=== PATIENT | female | born 1990 | race African-American/Black ===

== ENCOUNTER 2016-12-04 23:17 | Emergency (ER) | payer BC, OTHER ==
[2016-12-04 23:36] VITALS: BMI 25.9
--- NOTE | 2016-12-04 23:42 | PDOC ---
History of Present Illness - General History Source: Patient Exam Limitations: No Limitations - History of Present Illness Initial Comments: 12/04/16 23:48 The patient is a 26 year old female with no significant past medical history who presents to the ED with 3 weeks of an allergic reaction. Patient reports she has seasonal allergies and when the weather starts to change she normally develops a slight headache, nasal congestion and itchy throat. States taking claritin intermittently with improvement, but has not been consistent. Patient reports her headache has increased today and been more persistent. States her headache is bitemporal and does not radiate. Denies changes in vision or dizziness. The patient denies fever, chills, cough, SOB, chest pain, and palpitations. The patient denies abdominal pain, nausea, vomiting, and diarrhea. <Teresa Urbina - Last Filed: 12/04/16 23:48> - General History Source: Patient <MarcellMoo swanson - Last Filed: 12/05/16 06:08> - General Chief Complaint: Headache Stated Complaint: HEADACHE Time Seen by Provider: 12/04/16 23:35 Past History <Teresa Urbina - Last Filed: 12/04/16 23:48> - Psycho/Social/Smoking Cessation Hx Suicidal Ideation: No Smoking History: Never smoked Have you smoked in the past 12 months: No Information on smoking cessation initiated: No Hx Alcohol Use: No Drug/Substance Use Hx: No <Moo Rosas - Last Filed: 12/05/16 06:08> - Past Medical History Allergies/Adverse Reactions: Allergies Allergy/AdvReac Type Severity Reaction Status Date / Time No Known Allergies Allergy Verified 12/04/16 23:34 Home Medications: Ambulatory Orders NK [No Known Home Medication] 12/04/16 Review of Systems - Review of Systems Able to Perform ROS?: Yes Comments:: 12/04/16 23:49 CONSTITUTIONAL: Absent: fever, no chills, no fatigue EYES: Absent: visual changes ENT: +nasal congestion, itchy throat Absent: ear pain CARDIOVASCULAR: Absent: chest pain, no palpitations RESPIRATORY: Absent: cough, no SOB GI: Absent: abdominal pain, no nausea, no vomiting, no constipation, no diarrhea GENITOURINARY: Absent: dysuria, no frequency, no hematuria MUSCULOSKELETAL: Absent: back pain, no arthralgia, no myalgia SKIN: Absent: rash NEURO: +headache <Teresa Urbina - Last Filed: 12/04/16 23:48> *Physical Exam - Vital Signs Last Vital Signs Temp Pulse Resp BP Pulse Ox 98.0 F 67 20 133/89 98 12/04/16 23:35 12/04/16 23:35 12/04/16 23:35 12/04/16 23:35 12/04/16 23:35 - Physical Exam Comments: 12/04/16 23:49 GENERAL: Well-appearing, well-nourished. No apparent distress. HEENT: Normocephalic, atraumatic. PERRL, EOM intact. CARDIOVASCULAR: Normal S1, S2. Regular rate and rhythm. PULMONARY: Clear to auscultation bilaterally. ABDOMEN: Soft, non-distended, non-tender. EXTREMITIES: Normal ROM in all four extremities. No gross deformities. SKIN: Warm, dry. No rash NEUROLOGICAL: No focal neurological deficits. <Teresa Urbina - Last Filed: 12/04/16 23:48> - Vital Signs Last Vital Signs Temp Pulse Resp BP Pulse Ox 98.0 F 67 20 133/89 98 12/04/16 23:35 12/04/16 23:35 12/04/16 23:35 12/04/16 23:35 12/04/16 23:35 <Moo Rosas - Last Filed: 12/05/16 06:08> Medical Decision Making - Medical Decision Making 12/05/16 06:07 Dr. Rosas: The scribe's documentation has been prepared under my direction and personally reviewed by me in its entirery. I confirm that the note above accurately reflects all work, treatment, procedures, and medical decision making performed by me. Pt feels better after resting in the department. Will discharge <Moo Rosas - Last Filed: 12/05/16 06:08> *DC/Admit/Observation/Transfer - Attestations Scribe Attestion: 12/04/16 23:49 Documentation prepared by Teresa Urbina, acting as medical insurance biller for Moo Rosas MD <Teresa Urbina - Last Filed: 12/04/16 23:48> - Discharge Dispostion Admit: No <Moo Rosas - Last Filed: 12/05/16 06:08> Diagnosis at time of Disposition: Headache Qualifiers: Headache type: unspecified Headache chronicity pattern: unspecified pattern Intractability: not intractable Qualified Code(s): R51 - Headache - Discharge Dispostion Disposition: HOME Condition at time of disposition: Stable - Referrals Referrals: STAFF,NOT ON [Primary Care Provider] - Alisia Pitts MD [Staff Physician] - - Patient Instructions Printed Discharge Instructions: DI for Headache
[2016-12-04] MEDS ORDERED: MECLIZINE HCL 25 MG TABLET (FP) PO STA (23:43)
[2016-12-04] MEDS ORDERED: ACETAMINOPHEN 325 MG TABLET (FP) PO ONE (23:43)
[2016-12-05] MEDS ORDERED: ACETAMINOPHEN 325 MG TABLET (FP) ONE (00:31)
[2016-12-05] MEDS ORDERED: MECLIZINE HCL 25 MG TABLET (FP) ONE (00:32)
[2016-12-05 06:12] VITALS: BP 130/82; PULSE 65; TEMP 98.2
== END 2016-12-05 06:19 | disposition home or self-care (01) ==
LOC: JER 23:17
DX: J30.2 Other seasonal allergic rhinitis (principal); R51 Headache
CPT/HCPCS: 84703; 99282-25